=== PATIENT | female | born 1990 ===

== ENCOUNTER 2018-01-10 06:55 | Emergency (ER) | payer OTHER ==
[~2018-01-10] VITALS: Ht 154.9 cm; Wt 67.6 kg
[2018-01-10] MEDS ORDERED: PRENATABS FA T1 EACH (07:02)
== END 2018-01-10 15:35 | disposition home or self-care (01) ==
LOC: ER 06:55
DX: O26.891 Other specified pregnancy related conditions, first trimester (principal); R10.2 Pelvic and perineal pain; Z34.01 Encounter for supervision of normal first pregnancy, first trimester